=== PATIENT | female | born 1985 | race Caucasian/White ===

== ENCOUNTER → 2018-12-15 | Day surgery (SDC) | payer OTHER ==
[~2018-12-15] MED LIST: AMOXICILLIN250 MG PO; BUPIVACAINE HCL 0.5% INJ 30 ML VIAL INJ ONE; CEFAZOLIN SOD 1 GM/NS 50ML 100 ML IV ONE; DEXAMETHASONE SOD PHOS INJ 4 MG/ML VIAL ONE; EYE LUBRICANT OPTH OINT 3.5GM TUBE OP ONE; FENTANYL CITRATE/PF 100MCG/2 ML INJ ONE; GLYCOPYRROLATE INJ 1MG/ 5 ML SYR ONE; IBUPROFEN 800MG/ 250ML 250 ML IV ONE; LIDOCAINE HCL 2% LOCAL INJ 5 ML SDV VIAL INJ ONE; MIDAZOLAM HCL 2 MG/2 ML VIAL ONE; NEOSTIGMINE 5 MG/5ML SYR ONE; ONDANSETRON HCL INJ 2MG/ML 2ML 2 MG/ML VIAL ONE; PROPOFOL IV EMULSION 10 MG/ML 20 ML VIAL ONE; ROCURONIUM BROMIDE 10 MG/ML 5ML VIAL ONE; SEVOFLURANE INHAL SOLN 250 ML PEN BTL ONE; [UNRECOGNIZED DRUG - OTHER] PO
--- OUTSIDE RECORDS SUMMARY | 2018-12-15 08:34 | XMS REPORT | Summary of Care ---
Author Author [facility] - Health Organization [facility] - Health Address Unknown Phone Unavailable Care Team Providers Care Safety Companion Name Role Phone Pedro Nino DO PCP Encounter Details Care Team Description Date Type Department Doctor Unassigned, [place] [address] [place] [address] 12/09/[address] [facility] [address] [place] [address] Allergies No Known Allergiesdocumented as of this encounter (statuses as of 12/09/2018) Medications End Date Status Medication Sig Dispensed Refills Start Date 12/13/2018 Active amoxicillin-clavulanate Take 1 tablet 20 tablet 0 (AUGMENTIN) 875-125 mg by mouth 2 9 per tabletIndications: (two) times Perirectal abscess daily for 10 days. documented as of this encounter (statuses as of 12/09/2018) Active Problems Problem Noted Date Perirectal abscess 12/01/2018 documented as of this encounter (statuses as of 12/09/2018) Social History Date Tobacco Use Types Packs/Day Years Used Never Smoker Smokeless Tobacco: Never Used Education Answer Date Recorded What is the highest level of school you have Associate degree: academic 12/01/2018 completed or the highest degree you have received? program Financial Resource Strain Answer Date Recorded How hard is it for you to pay for the very basics Not hard at all 12/01/2018 like food, housing, medical care, and heating? Food Insecurity Answer Date Recorded Within the past 12 months, you worried that your Never true 12/01/2018 food would run out before you got money to buy more. Within the past 12 months, the food you bought Never true 12/01/2018 just didn't last and you didn't have money to get more. Transportation Needs Answer Date Recorded In the past 12 months, has lack of transportation No 12/01/2018 kept you from medical appointments or from getting medications? In the past 12 months, has lack of transportation No 12/01/2018 kept you from meetings, work, or getting things needed for daily living? Sex Assigned at Date Recorded Not on file Industry Job Start Date Occupation Not on file Not on file Not on file Travel End Travel History Travel Start No recent travel history available. documented as of this encounter Last Filed Vital Signs Not on filedocumented in this encounter Plan of Treatment Health Maintenance Due Date Last Done Comments VARICELLA VACCINES (1 of 12/04/2000 2 - 13+ 2-dose series) DTaP,Tdap,and Td Vaccines 12/04/2006 (1 - Tdap) PAP SMEAR 12/04/2008 INFLUENZA VACCINE 12/28/2018 PNEUMOCOCCAL 0-64 YEARS Aged Out No longer eligible based COMBINED SERIES on patient's age to complete this topic documented as of this encounter Procedures Comments Procedure Name Priority Date/Time Associated Diagnosis EXTERNAL PROVIDER RECORDS Routine 12/09/2018 12:01 AM CDT documented in this encounter Results Not on filedocumented in this encounter Insurance Type Payer Benefit Subscriber ID Effective Phone Address Plan / Dates Group HMO/PPO/POS CIGNA CIGNA II [id number] 2018-P resent documented as of this encounter
--- OUTSIDE RECORDS SUMMARY | 2018-12-15 08:34 | XMS REPORT | Summary of Care ---
Author Author [facility] - Health Organization [facility] - Health Address Unknown Phone Unavailable Care Team Providers Care Licensed Loan Officer Assistant Name Role Phone Pedro Nino DO PCP Reason for Referral * (Routine) Referred By Contact Referred To Contact Status Reason Specialty Diagnoses / Procedures Erwin Barnett MD [address] [place] [id number] New Request [facility] Diagnoses Perirectal abscess P rocedures Discharge Follow-Up: Specialty Service [facility]ERY; 1 Week Reason for Visit * Auth/Cert Referred By Contact Referred To Contact Status Reason Specialty Diagnoses / Procedures Clc [address] [place] [address] Surgery Diagnoses perirectal abcess Encounter Details Care Team Description Date Type Department Maira Cabrera MD [address] [facility] [address] [place] [address] Perirectal abscess 12/01/2018 [facility] Intensive - Encounter Care Unit CLC 7A 12/03/2018 [address] [place] [address] Allergies No Known Allergiesdocumented as of this encounter (statuses as of 12/03/2018) Medications End Date Status Medication Sig Dispensed Refills Start Date 12/13/2018 Active amoxicillin-clavulanate Take 1 tablet 20 tablet 0 (AUGMENTIN) 875-125 mg by mouth 2 9 per tabletIndications: (two) times Perirectal abscess daily for 10 days. documented as of this encounter (statuses as of 12/03/2018) Active Problems Problem Noted Date Perirectal abscess 12/01/2018 documented as of this encounter (statuses as of 12/03/2018) Social History Date Tobacco Use Types Packs/Day Years Used Never Smoker Smokeless Tobacco: Never Used Tobacco Cessation: Counseling Given: No Education Answer Date Recorded What is the [...] of this encounter Last Filed Vital Signs Reading Time Taken Comments Vital Sign 98/55 12/03/2018 3:03 PM CDT Blood Pressure 56 12/03/2018 3:03 PM CDT Pulse 36.9 C (98.5 F) 12/03/2018 3:03 PM CDT Temperature 18 12/03/2018 3:03 PM CDT Respiratory Rate 99% 12/03/2018 3:03 PM CDT Oxygen Saturation - - Inhaled Oxygen Concentration 59 kg (130 lb) 12/01/2018 10:00 PM CDT Weight 170.2 cm (5' 7") 12/01/2018 10:00 PM CDT Height 20.36 12/01/2018 10:00 PM CDT Body Mass Index documented in this encounter Discharge Summaries * Maira Cabrera MD - 12/03/2018 8:46 AM CDT Red Team Service Date of Service: 12/03/2018 ADMIT DATE: 12/01/2018 DISCHARGE DATE: 12/03/2018 ATTENDING MD: Maira Cabrera MD REASON FOR ADMISSION Anal pain FINAL DIAGNOSIS: (the reason, after study, for admitting the patient to the hosp ital) Shahzad-rectal abscess SECONDARY DIAGNOSIS: (any diagnosis that, on this admission, required clinical e valuation, therapeutic treatment, diagnostic procedures, extended hospital stay, or additional nursing care/monitoring) Active Problems: Perirectal abscess (12/01/2018) POA: Yes Resolved Problems: * No resolved hospital problems. * Orders Placed This Encounter CONSULT GENERAL SURGERY Current Facility-Administered Medications: acetaminophen (TYLENOL) tablet 650 mg, 650 mg, Oral, Q6HPRN, Chani Augustin MD, 650 mg at 12/01/18 2107 ampicillin-sulbactam (UNASYN) 1.5 g in NaCl 0.9% (NS) 50 mL MINI-BAG, 1.5 g , IV Piggyback, Q6H ABX, Solo Augustin MD, 1.5 g at 12/03/18 0946 heparin injection 5,000 Units, 5,000 Units, Subcutaneous, Q8H, Barbara Augustin MD HYDROcodone-acetaminophen (NORCO) 10-325 mg tablet 1 tablet, 1 tablet, Oral , Q6HPRN, Jamal Hogan MD morpHINE injection 2 mg, 2 mg, Slow IV Push, Q4HPRN, Jamal Hogan MD SIGNIFICANT LAB/X-RAYS: Lab results: CBC BMP PT/INR WBC (10*3/L) Date Value 12/02/2018 6.13 NA (mmol/L) Date Value 12/02/2018 139 No results found for: PT RBC (10*6/L) Date Value 12/02/2018 3.83 (L) K (mmol/L) Date Value 12/02/2018 3.9 INR (no units) Date Value 12/01/2018 1.1 PLT (10*3/L) Date Value 12/02/2018 192 CALCIUM (mg/dL) Date Value 12/02/2018 8.5 (L) HGB (g/dL) Date Value 12/02/2018 11.9 CL (mmol/L) Date Value 12/02/2018 106 aPTT HCT (%) Date Value 12/02/2018 36.3 BUN (mg/dL) Date Value 12/02/2018 13 No results found for: APTTPAT CREATININE (mg/dL) Date Value 12/02/2018 0.86 GLUCOSE (mg/dL) Date Value 12/02/2018 85 CO2 TOTAL (mmol/L) Date Value 12/02/2018 25 Other lab results: X-ray results: No final results containing an impression from the past 30 days w ere found. HOSPITAL COURSE: Lilian Villavicencio is a 32 year old female was admitted to [facility] from outside [facility] for shahzad-rectal abscess. CTAP done showed 1.5cm collection but on physical exa m gen surg did not assess any drainable collection. She was put on oral abx, rem ained stable and [facility] FUNCTIONAL STATUS: fully ambulatory DISCHARGE CONDITION: good COGNITIVE STATUS: cognitively intact DIET: regular ACTIVITY: as tolerated DISCHARGE MEDICATIONS: Current Discharge Medication List START taking these medications Details amoxicillin-clavulanate (AUGMENTIN) 1 tablet Take 1 tablet by mouth 2 (two) time s daily. Qty: 20 tablet, Refills: 0 Start date: 12/03/2018, End date: 12/13/2018 Associated Diagnoses: Perirectal abscess ANTIBIOTICS: Did this patient receive antibiotics during this admission, or is he/sh being di scharged with antibiotics? Yes Was the patient given education on antibiotic ind ication, duration, and adverse effects? yes WOUND CARE: none CODE STATUS: full code OXYGEN (is patient being discharged on oxygen): no CORE MEASURES: None PATIENT EDUCATION PROVIDED: medications DISCHARGE: home self care FOLLOW-UP APPOINTMENT: Follow up with 1/ Dr. Frank in 1 week 2/ PCP in 3-5 days PLAN FOR READMISSION: No Maira Cabrera MD [facility] Internal Medicine documented in this encounter Progress Notes * Solo Augustin MD - 12/02/2018 1:35 PM CDT Internal Medicine Progress Note Date of Service: 12/02/2018 Chief Complaint: None now Review of System (ROS) Denies chest pain, abdominal pain, headaches, cough, dyspnea, fevers, chills, na useas or diarrhea Vital Signs: Vitals: 12/02/18 0100 12/02/18 0500 12/02/18 0711 12/02/18 1120 BP: 91/50 94/50 97/42 121/56 Pulse: 57 52 58 54 Resp: 18 18 17 18 Temp: 36.7 C (98 F) 36.7 C (98 F) 36.4 C (97.5 F) 36.7 C (98 F) TempSrc: Tympanic Tympanic Oral Oral SpO2: 95% 98% 100% 100% Weight: Height: Physical Exam: General: alert and oriented x 4 (person, place, date/time and situation); no lyubov arent distress, well developed, well nourished HEENT: normocephalic atraumatic, pupils equal, round, reactive to light Neck: full range of motion Lungs: clear to auscultation bilaterally Cardio: S1, S2 normal; no murmurs, rubs or gallops, regular rate and rhythm Abdomen: soft; non-tender; non-distended; normoactive bowel sounds Extremities: no clubbing, cyanosis, or edema Skin: no rashes Neuro: no focal deficits, alert and oriented x 3 Lab Data/Imaging: Recent Results (from the past 24 hour(s)) Blood Culture - Peripheral Vein Collection Time: 12/01/18 8:51 PM Result Value Ref Range Blood Culture-Aerobic Culture In Progress No growth Blood Culture-Anaerobic Culture In Progress No growth TEST, SERUM Collection Time: 12/01/18 9:01 PM Result Value Ref Range PREG SERUM Negative BASIC METABOLIC PANEL (NA, K, CL, CO2, GLUCOSE, BUN, CREATININE, CA) Collection Time: 12/01/18 9:01 PM Result Value Ref Range NA 139 135 - 145 mmol/L K 3.6 3.5 - 5.0 mmol/L CL 105 98 - 108 mmol/L CO2 TOTAL 24 23 - 31 mmol/L AGAP 10 2 - 16 BUN 11 7 - 23 mg/dL GLUCOSE 116 (H) 70 - 110 mg/dL CREATININE 0.72 0.50 - 1.04 mg/dL CALCIUM 9.1 8.6 - 10.6 mg/dL eGFR Calculation (Non-) 95.1 mL/min/1.73m2 eGFR Calculation () 115.3 mL/min/1.73m2 HEPATIC FUNCTION PANEL (15792) (ALB,T.PRO,BILI T,BU/BC,ALT,AST,ALK PHOS) Collection Time: 12/01/18 9:01 PM Result Value Ref Range TOTAL BILI 0.6 0.1 - 1.1 mg/dL BILI UNCON 0.6 0.1 - 1.1 mg/dL BILI CONJ 0.0 0.0 - 0.3 mg/dL T PROTEIN 7.0 6.3 - 8.2 g/dL ALBUMIN 3.8 3.5 - 5.0 g/dL ALK PHOS 47 34 - 122 U/L ALT(SGPT) 15 9 - 51 U/L AST(SGOT) 14 13 - 40 U/L Phosphorus Serum Collection Time: 12/01/18 9:01 PM Result Value Ref Range PHOSPHORUS 3.0 2.5 - 5.0 mg/dL Blood Culture - Peripheral Vein # 2 Collection Time: 12/01/18 9:01 PM Result Value Ref Range Blood Culture-Aerobic Culture In Progress No growth Blood Culture-Anaerobic Culture In Progress No growth Prothrombin Time / INR Collection Time: 12/01/18 9:49 PM Result Value Ref Range PROTIME PATIENT 12.1 10.1 - 12.6 Seconds INR 1.1 CBC WITH DIFFERENTIAL Collection Time: 12/01/18 9:49 PM Result Value Ref Range WBC 7.59 4.30 - 11.10 10*3/L RBC 3.79 (L) 3.93 - 5.25 10*6/L HGB 12.0 11.6 - 15.0 g/dL HCT 35.9 35.7 - 45.2 % MCV 94.7 80.6 - 95.5 fL MCH 31.7 25.9 - 32.8 pg MCHC 33.4 31.6 - 35.1 g/dL RDW-SD 41.3 39.0 - 49.9 fL RDW-CV 11.9 (L) 12.0 - 15.5 % PLT 189 166 - 358 10*3/L MPV 10.4 9.5 - 12.9 fL NRBC/100 WBC 0.0 0.0 - 10.0 /100 WBCs NRBC x10^3 <0.01 10*3/L GRAN MAT (NEUT) % 66.0 % IMM GRAN % 0.30 % LYMPH % 27.4 % MONO % 4.6 % EOS % 1.2 % BASO % 0.5 % GRAN MAT x10^3(ANC) 5.01 1.88 - 7.09 10*3/uL IMM GRAN x10^3 <0.03 0.00 - 0.06 10*3/uL LYMPH x10^3 2.08 1.32 - 3.29 10*3/uL MONO x10^3 0.35 0.33 - 0.92 10*3/uL EOS x10^3 0.09 0.03 - 0.39 10*3/uL BASO x10^3 0.04 0.01 - 0.07 10*3/uL Basic Metabolic Panel (NA, K, CL, CO2, GLUCOSE, BUN, CREATININE, CA) Collection Time: 12/02/18 5:18 AM Result Value Ref Range NA 139 135 - 145 mmol/L K 3.9 3.5 - 5.0 mmol/L CL 106 98 - 108 mmol/L CO2 TOTAL 25 23 - 31 mmol/L AGAP 8 2 - 16 BUN 13 7 - 23 mg/dL GLUCOSE 85 70 - 110 mg/dL CREATININE 0.86 0.50 - 1.04 mg/dL CALCIUM 8.5 (L) 8.6 - 10.6 mg/dL eGFR Calculation (Non-) 77.5 mL/min/1.73m2 eGFR Calculation () 93.9 mL/min/1.73m2 Magnesium Serum Collection Time: 12/02/18 5:18 AM Result Value Ref Range MAGNESIUM 2.0 1.7 - 2.4 mg/dL CBC WITH DIFFERENTIAL Collection Time: 12/02/18 5:18 AM Result Value Ref Range WBC 6.13 4.30 - 11.10 10*3/L RBC 3.83 (L) 3.93 - 5.25 10*6/L HGB 11.9 11.6 - 15.0 g/dL HCT 36.3 35.7 - 45.2 % MCV 94.8 80.6 - 95.5 fL MCH 31.1 25.9 - 32.8 pg MCHC 32.8 31.6 - 35.1 g/dL RDW-SD 41.1 39.0 - 49.9 fL RDW-CV 11.9 (L) 12.0 - 15.5 % PLT 192 166 - 358 10*3/L MPV 10.5 9.5 - 12.9 fL NRBC/100 WBC 0.0 0.0 - 10.0 /100 WBCs NRBC x10^3 <0.01 10*3/L GRAN MAT (NEUT) % 59.9 % IMM GRAN % 0.20 % LYMPH % 30.5 % MONO % 7.2 % EOS % 1.5 % BASO % 0.7 % GRAN MAT x10^3(ANC) 3.68 1.88 - 7.09 10*3/uL IMM GRAN x10^3 <0.03 0.00 - 0.06 10*3/uL LYMPH x10^3 1.87 1.32 - 3.29 10*3/uL MONO x10^3 0.44 0.33 - 0.92 10*3/uL EOS x10^3 0.09 0.03 - 0.39 10*3/uL BASO x10^3 0.04 0.01 - 0.07 10*3/uL POCT GLUCOSE (AUTOMATED) Collection Time: 12/02/18 7:15 AM Result Value Ref Range POCT GLU 82 70 - 110 mg/dL No final results containing an impression from the past 2 days were found. Assessment/Plan: 1. Shahzad rectal abscess - seen by surgery, recommended IV abx one more day then d ischarge home on PO 2. DVT ppx 3. Full Code 4. Disposition - inpatient care, discharge home tomorrow Solo Augustin MD * Angi Reyna RN - 12/02/2018 12:42 PM CDT Care Management Social Functional Assessment Patient Name: Lilian Villavicencio Age: [age] year old Sex: female MRN: [id number] Previous admit date: N/A Current diagnosis and co-morbidities: perirectal abcess Readmission Questions: Was patient discharged from any acute care hospital within the last 30 days: No Social Functional Assessment: Primary language spoken/preferred: [place] Citizen Mental Status: Alert & Oriented to Person,Place & Time Information given by: Self Patient's support system: Spouse Name and number of support system: Naun Maye [phone] Primary Wafer Mounter: Self MPOA: No Living Arrangement: Home Address of living arrangement : [address], [facility] [address] Persons living in home: Same as support system;Self Barriers to returning home: None Baseline functional status- ambulation: Independent Functional status-baseline personal care: Independent Baseline functional status- driving: Independent Baseline functional status- grocery shopping: Independent Functional status-baseline housekeeping: Independent Functional status-baseline meal prep: Independent Current functional status same as prior: Yes Do you have a PCP?: Yes Name of PCP: Dr. Nino Home Health Care Agency: No Provider Services: No DME Company: No Equipment: None Hemodialysis: No Community resources utilized: None Funding Resources: Commercial Prescription coverage plan: [facility]acy where meds are filled: Other Other pharmacy: [id number] - [place], [place] - [address] [address] AT [facility] Anticipated services prior to disharge: None Expected mode of discharge transportation: Personal vehicle;Same as support syst em Additional info required for discharge planning: No needs identified Recommended discharge plan: Home Any issues or concerns with obtaining/affording your medications at home: no. Are you or your support system able to pick and shovel man medications at discharge: yes. D escribe: no issues. CM forwarded patient information and updated address to inpatient reg. Patient h as [employer] health insurance. SFA Complete: Social Functional Assessment complete: Yes Alcohol Use Screening (AUDIT-C) How often do you have a drink containing alcohol?: 2 to 4 times a month SCORE: 2 How many drinks containing alcohol do you have on a typical day when you are dri nking?: 1 or 2 drinks How often do you have six or more drinks on one occasion?: Never Total Score (AUDIT-C): 2 Did patient elect to have resources provided: No Actions taken: Provided support Role of Care Management explained. Angi Reyna RN BSN Director Of Golf- [facility] Department of Care Management O: [phone] E: [email or web address] documented in this encounter Plan of Treatment Date/Time Name Type Priority Associated Diagnoses 12/01/2018 8:51 PM CDT Blood Culture - LAB [facility] Peripheral Vein 12/01/2018 9:01 PM CDT Blood Culture - LAB [facility] Peripheral Vein # 2 Health Maintenance Due Date Last Done Comments VARICELLA VACCINES (1 of 12/04/2000 2 - 13+ 2-dose series) DTaP,Tdap,and Td Vaccines 12/04/2006 (1 - Tdap) PAP SMEAR 12/04/2008 INFLUENZA VACCINE 12/28/2018 PNEUMOCOCCAL 0-64 YEARS Aged Out No longer eligible based COMBINED SERIES on patient's age to complete this topic documented as of this encounter Procedures Comments Procedure Name Priority Date/Time Associated Diagnosis POCT GLUCOSE (AUTOMATED) Routine 12/02/2018 7:15 AM CDT CBC WITH DIFFERENTIAL Routine 12/02/2018 5:18 AM CDT CBC WITH DIFF Routine 12/02/2018 5:18 AM CDT BASIC METABOLIC PANEL Routine 12/02/2018 (NA, K, CL, CO2, GLUCOSE, 5:18 AM CDT BUN, CREATININE, CA) MAGNESIUM Routine 12/02/2018 5:18 AM CDT CBC WITH DIFFERENTIAL [facility] 12/01/2018 9:49 PM CDT PROTHROMBIN TIME / INR [facility] 12/01/2018 9:49 PM CDT CBC WITH DIFF [facility] 12/01/2018 9:49 PM CDT BASIC METABOLIC PANEL [facility] 12/01/2018 (NA, K, CL, CO2, GLUCOSE, 9:01 PM CDT BUN, CREATININE, CA) HEPATIC FUNCTION PANEL [facility] 12/01/2018 (27509) (ALB,T.PRO,BILI 9:01 PM CDT T,BU/BC,ALT,AST,ALK PHOS) TEST, SERUM STAT 12/01/2018 9:01 PM CDT PHOSPHORUS Routine 12/01/2018 9:01 PM CDT documented in this encounter Results * POCT GLUCOSE (AUTOMATED) (12/02/2018 7:15 AM CDT) POCT GLU 82 70 - 110 mg/dL [facility] Specimen Blood Performing Organization Address City/State/Zipcode Phone Number [facility] CLIA: [id number], [address] [place] [address] St * CBC WITH DIFFERENTIAL (12/02/2018 5:18 AM CDT) WBC 6.13 4.30 - 11.10 [facility]*3/L [facility] RBC 3.83 (L) 3.93 - 5.25 10*6/L [facility] HGB 11.9 11.6 - 15.0 g/dL [facility] HCT 36.3 35.7 - 45.2 % [facility] MCV 94.8 80.6 - 95.5 fL [facility] MCH 31.1 25.9 - 32.8 pg [facility] MCHC 32.8 31.6 - 35.1 g/dL [facility] RDW-SD 41.1 39.0 - 49.9 fL [facility] RDW-CV 11.9 (L) 12.0 - 15.5 % [facility] PLT 192 166 - 358 10*3/L [facility] MPV 10.5 9.5 - 12.9 fL [facility] NRBC/100 WBC 0.0 0.0 - 10.0 /100 WBCs [facility] NRBC x10^3 <0.01 10*3/L [facility] GRAN MAT (NEUT) 59.9 % [facility] % [facility] IMM GRAN % 0.20 % [facility] LYMPH % 30.5 % [facility] MONO % 7.2 % [facility] EOS % 1.5 % [facility] BASO % 0.7 % [facility] GRAN MAT 3.68 1.88 - 7.09 10*3/uL [facility] x10^3(ANC) [facility] IMM GRAN x10^3 <0.03 0.00 - 0.06 10*3/uL [facility] LYMPH x10^3 1.87 1.32 - 3.29 10*3/uL [facility] MONO x10^3 0.44 0.33 - 0.92 10*3/uL [facility] EOS x10^3 0.09 0.03 - 0.39 10*3/uL [facility] BASO x10^3 0.04 0.01 - 0.07 10*3/uL [facility] Specimen Blood - ARM, LEFT Performing Organization Address City/[facility] Phone Number [facility] CLIA: [id number], [address] [place], [place] [id number] [facility] * Magnesium Serum (12/02/2018 5:18 AM CDT) MAGNESIUM 2.0 1.7 - 2.4 mg/dL [facility] Specimen Blood - ARM, LEFT Performing Organization Address [facility] Phone Number [facility] CLIA: [id number], [address] [place] [address] [facility] * Basic Metabolic Panel (NA, K, CL, CO2, GLUCOSE, BUN, CREATININE, CA) (12/02/2018 5:18 AM CDT) NA 139 135 - 145 mmol/L [facility] K 3.9 3.5 - 5.0 mmol/L [facility] CL 106 98 - 108 mmol/L [facility] CO2 TOTAL 25 23 - 31 mmol/L [facility] AGAP 8 2 - 16 [facility] BUN 13 7 - 23 mg/dL [facility] GLUCOSE 85 70 - 110 mg/dL [facility] CREATININE 0.86 0.50 - 1.04 mg/dL [facility] CALCIUM 8.5 (L) 8.6 - 10.6 mg/dL [facility] eGFR 77.5 mL/min/1.73m2 [facility] Calculation SERVICES[facility] (Non-[facility]) eGFR 93.9 mL/min/1.73m2 [facility] Calculation [facility] ([facility]) Specimen Blood - ARM, LEFT Narrative Performed At Association of Glomerular Filtration Rate (GFR) and Staging of Kidney Disease* [facility] + + + + SERVICES- [place] | GFR (mL/min/1.73 m2)| With Kidney Damage|Without Kidney Damage CAMPUS + + + + |>90|Stage one| Normal + + + + |60-89|Stage two| Decreased GFR + + + + |30-59|Stage three| Stage three + + + + |15-29|Stage four | Stage four + + + + |<15 (or dialysis)|Stage five | Stage five + + + + *Each stage assumes the associated GFR level has been in effect for at least three months.Stages 1 to 5, with or without kidney disease, indicate chronic kidney disease. Notes: Determination of stages one and two (with eGFR >59mL/min/1.73 m2) requires estimation of kidney damage for at least three months as defined by structural or functional abnormalities of the kidney, manifested by either: Pathological abnormalities or Markers of kidney damage (including abnormalities in the composition of the blood or urine or abnormalities in imaging tests). Performing Organization Address City/State/Zipcode Phone Number [facility] CLIA: [id number], [address] [place] [address] [facility] * CBC WITH DIFFERENTIAL (12/01/2018 9:49 PM CDT) WBC 7.59 4.30 - 11.10 [facility] 10*3/L [facility] RBC 3.79 (L) 3.93 - 5.25 10*6/L [facility] HGB 12.0 11.6 - 15.0 g/dL [facility] HCT 35.9 35.7 - 45.2 % [facility] MCV 94.7 80.6 - 95.5 fL [facility] MCH 31.7 25.9 - 32.8 pg [facility] MCHC 33.4 31.6 - 35.1 g/dL [facility] RDW-SD 41.3 39.0 - 49.9 fL [facility] RDW-CV 11.9 (L) 12.0 - 15.5 % [facility] PLT 189 166 - 358 10*3/L [facility] MPV 10.4 9.5 - 12.9 fL [facility] NRBC/100 WBC 0.0 0.0 - 10.0 /100 WBCs [facility] NRBC x10^3 <0.01 10*3/L [facility] GRAN MAT (NEUT) 66.0 % [facility] % [facility] IMM GRAN % 0.30 % [facility] LYMPH % 27.4 % [facility] MONO % 4.6 % [facility] EOS % 1.2 % [facility] BASO % 0.5 % [facility] GRAN MAT 5.01 1.88 - 7.09 10*3/uL [facility] x10^3(ANC) [facility] IMM GRAN x10^3 <0.03 0.00 - 0.06 10*3/uL [facility] LYMPH x10^3 2.08 1.32 - 3.29 10*3/uL [facility] MONO x10^3 0.35 0.33 - 0.92 10*3/uL [facility] EOS x10^3 0.09 0.03 - 0.39 10*3/uL [facility] BASO x10^3 0.04 0.01 - 0.07 10*3/uL [facility] Specimen Blood - ARM, RIGHT Performing Organization Address City/State/Zipcode Phone Number [facility] CLIA: [id number], [address], [place] [address] [facility] * Prothrombin Time / INR (12/01/2018 9:49 PM CDT) PROTIME PATIENT 12.1 10.1 - 12.6 Seconds [facility] INR 1.1Comment: Normal INR <1.1; [facility] Warfarin Therapeutic range 2.0 [facility] to 3.0 or 2.5 to 3.5, [facility] depending upon the indications. Specimen Blood - ARM, RIGHT Performing Organization Address [facility] Cent[facility]ode Phone Number [facility] CLIA: [id number], [address], [place] [id number] [facility] * TEST, SERUM (12/01/2018 9:01 PM CDT) Pathologist [facility] PREG SERUM Negative [facility] Specimen Blood - ARM, RIGHT Narrative Performed At Less than 10 IU/L.If low titer or ectopic is suspected, resubmit [facility] [facility] specimen in 48-72 hours. [facility] Performing Organization Address [facility] Phone Number [facility] CLIA: [id number], [address], [place] [address] [facility] * Phosphorus Serum (12/01/2018 9:01 PM CDT) Pathologist [facility] PHOSPHORUS 3.0 2.5 - 5.0 mg/dL [facility] Specimen Blood - ARM, RIGHT Performing Organization Address [facility] Phone Number [facility] CLIA: [id number], [address], [place] [address] [facility] * HEPATIC FUNCTION PANEL (08986) (ALB,T.PRO,BILI T,BU/BC,ALT,AST,ALK PHOS) (12/01/2018 9:01 PM CDT) Pathologist [facility] TOTAL BILI 0.6 0.1 - 1.1 mg/dL [facility] BILI UNCON 0.6 0.1 - 1.1 mg/dL [facility] BILI CONJ 0.0 0.0 - 0.3 mg/dL [facility] T PROTEIN 7.0 6.3 - 8.2 g/dL [facility] ALBUMIN 3.8 3.5 - 5.0 g/dL [facility] ALK PHOS 47 34 - 122 U/L [facility] ALT(SGPT) 15 9 - 51 U/L [facility] AST(SGOT) 14 13 - 40 U/L [facility] Specimen Blood - ARM, RIGHT Performing Organization Address City/State/Zipcode Phone Number [facility] CLIA: [id number], [address] [place] [address] [facility] * BASIC METABOLIC PANEL (NA, K, CL, CO2, GLUCOSE, BUN, CREATININE, CA) (12/01/2018 9:01 PM CDT) NA 139 135 - 145 mmol/L [facility] K 3.6 3.5 - 5.0 mmol/L [facility] CL 105 98 - 108 mmol/L [facility] CO2 TOTAL 24 23 - 31 mmol/L [facility] AGAP 10 2 - 16 [facility] BUN 11 7 - 23 mg/dL [facility] GLUCOSE 116 (H) 70 - 110 mg/dL [facility] CREATININE 0.72 0.50 - 1.04 mg/dL [facility] CALCIUM 9.1 8.6 - 10.6 mg/dL [facility] eGFR 95.1 mL/min/1.73m2 [facility] Calculation [facility] eGFR 115.3 mL/min/1.73m2 [facility] Calculation [facility] ([facility]) Specimen Blood - ARM, RIGHT Narrative Performed At Association of Glomerular Filtration Rate (GFR) and Staging of Kidney Disease* [facility] + + + + [facility] | GFR (mL/min/1.73 m2)| With Kidney Damage|Without Kidney Damage CAMPUS + + + + |>90|Stage one| Normal + + + + |60-89|Stage two| Decreased GFR + + + + |30-59|Stage three| Stage three + + + + |15-29|Stage four | Stage four + + + + |<15 (or dialysis)|Stage five | Stage five + + + + *Each stage assumes the associated GFR level has been in effect for at least three months.Stages 1 to 5, with or without kidney disease, indicate chronic kidney disease. Notes: Determination of stages one and two (with eGFR >59mL/min/1.73 m2) requires estimation of kidney damage for at least three months as defined by structural or functional abnormalities of the kidney, manifested by either: Pathological abnormalities or Markers of kidney damage (including abnormalities in the composition of the blood or urine or abnormalities in imaging tests). Performing Organization Address City/State/Zipcode Phone Number [facility] CLIA: [id number], [address] [place] [address] [facility] documented in this encounter Visit Diagnoses Diagnosis Perirectal abscess - Primary Abscess of anal and rectal regions documented in this encounter Administered Medications Action Date Dose Rate Site Medication Order MAR Action 12/01/2018 9:07 PM CDT 650 mg acetaminophen (TYLENOL) tablet 650 mg Given 650 mg, Oral, Q6HPRN, Starting Sat12/01/18 at 1836, Until Discontinued, Routine, Pain (scale 1-3) 12/03/2018 9:46 AM CDT 1.5 g ampicillin-sulbactam (UNASYN) 1.5 g in Given NaCl 0.9% (NS) 50 mL MINI-BAG 1.5 g, IV Piggyback, Q6H ABX, First dose on Sat12/01/18 at 2200, Until Discontinued, 50 mL, Reason for Anti-Infective: Empiric Therapy for Suspected Infection, Empiric Therapy Site: Skin / Soft tissue, Duration of therapy: 72 hours 1.5 g Given 12/03/2018 4:35 AM CDT 1.5 g Given 12/02/2018 9:40 PM CDT heparin injection 5,000 Units 5,000 Units, Subcutaneous, Q8H, First dose on Sat12/01/18 at 2200, Until Discontinued, Routine HYDROcodone-acetaminophen (NORCO) 10-325 mg tablet 1 tablet 1 tablet, Oral, Q6HPRN, Starting Sat12/01/18 at 2006, Until Discontinued, Routine, Pain (scale 4-6) morpHINE injection 2 mg 2 mg, Slow IV Push, Q4HPRN, Starting Sat12/01/18 at 2006, Until Discontinued, Routine, Pain (scale 7-10) documented in this encounter Insurance Type Payer Benefit Subscriber ID Effective Phone Address Plan / Dates Group HMO/PPO/POS [employer]OM[employer] II [id number] [id number] brian documented as of this encounter
--- OUTSIDE RECORDS SUMMARY | 2018-12-15 08:34 | XMS REPORT ---
Author Author [facility] Address Unknown Phone Unavailable Care Team Providers Care Microbiology Supervisor Name Role Phone Unavailable Unavailable Problems This patient has no known problems. Allergies, Adverse Reactions, Alerts This patient has no known allergies or adverse reactions. Medications This patient has no known medications.
--- NOTE | 2018-12-15 13:07 | Operative Report ---
DATE OF PROCEDURE: 12/15/2018 SURGEON: Erwin Barnett MD PREOPERATIVE DIAGNOSIS: Perirectal abscess. POSTOPERATIVE DIAGNOSIS: Perirectal abscess. PREOPERATIVE INDICATION: Treat disease, prevent infections related complications from perirectal abscess. PROCEDURES: Incision and drainage of right-sided perirectal abscess and (CPT 54189). ANESTHESIA: General. PERSONAL INJURY LITIGATION PARALEGAL: Scot Pollock, surgical certified surgical tech/first assistant. FLUIDS: 700 mL crystalloid. ESTIMATED BLOOD LOSS: 10 mL. DRAINS: None. COMPLICATIONS: None. SPECIMENS: Culture swabs of deep space abscess. GRAFTS: None. FINDINGS: Purulent material due to an acutely enlarged perirectal abscess. PROCEDURE DETAILS: The patient was brought to the operating room and was intubated under general endotracheal anesthesia. She was positioned prone with both arms to her sides and all pressure points were appropriately padded. She was sterilely prepped and draped in the usual fashion. A preprocedure pause was performed identifying the patient, use of perioperative antibiotics, intended procedure, and staff surgeon. At the apex of the abscess in the right perirectal space, an incision using a #15 blade was made, dissection was carried to the subcutaneous tissue down to deep tissue space and a large amount of purulent material was encountered, this was expressed through the wound and culture swabs were taken x2 of this. I then evacuated all the purulent material along with necrotic debris. We then irrigated the wound with sterile saline and achieved hemostasis. I then packed the wound with half-inch iodoform gauze and placed sterile dressings. She did receive some 0.5% bupivacaine for local anesthesia around the incision site for pain control. The patient tolerated the procedure well. Type of wound is type 4, dirty. Erwin Barnett MD C/MODL /[id number]
[2018-12-15 14:00] VITALS: BP 106/56
== END | disposition home or self-care (01) ==
LOC: OR 08:31
PROVIDERS: ATTEND Surgery
DX: K61.0 Anal abscess (principal); K58.9 Irritable bowel syndrome, unspecified; F41.9 Anxiety disorder, unspecified
CPT/HCPCS: 46040; 81025; 87071; 87075; 87186; 87205; J0690; J1100; J2001; J2250; J2405; J2704; J3010; J3490